=== PATIENT | female | born 1960 | race African-American/Black ===

== ENCOUNTER 2018-04-08 13:21 | Emergency (ER) | payer MEDICAID ==
[~2018-04-08] VITALS: Ht 162.6 cm; Wt 57.6 kg
[2018-04-08 13:21] VITALS: BP 95/67
[2018-04-08] MEDS ORDERED: GABAPENTIN100 MG ORAL (13:30)
[2018-04-08] MEDS ORDERED: PROTONIX40 MG ORAL (13:30)
[2018-04-08 15:02] LABS: ALANINE AMINOTRANSFERASE 76 U/L (12-78); ALBUMIN/GLOBULIN RATIO 0.5 (1.0-2.7); ALKALINE PHOSPHATASE 98 U/L (46-116); ANION GAP 9 mmol/L (5-15); ASPARTATE AMINO TRANSFERASE 78 U/L (15-37); BILIRUBIN,TOTAL 0.5 MG/DL (0.2-1.0); BLOOD UREA NITROGEN 24 mg/dL (7-18); CALCIUM 7.8 MG/DL (8.5-10.1); CARBON DIOXIDE 22 MMOL/L (21-32); CHLORIDE 115 MMOL/L (98-107); CREATININE 1.3 MG/DL (0.55-1.30); HEMATOCRIT 26.4 % (37.0-47.0); HEMOGLOBIN 8.4 G/DL (12.0-16.0); MEAN CORPUSCULAR VOLUME 88 FL (80-99); PLATELET COUNT 47 K/UL (150-450); POTASSIUM 3.8 MMOL/L (3.5-5.1); RED BLOOD COUNT 3.02 M/UL (4.20-5.40); RED CELL DISTRIBUTION WIDTH 16.2 % (11.6-14.8); SODIUM 146 MMOL/L (136-145); WHITE BLOOD COUNT 2.3 K/UL (4.8-10.8)
[2018-04-08] MEDS ORDERED: Lidocaine 2% Visc 15ml soln ORAL ONE (15:15)
--- NOTE | 2018-04-08 15:51 | Emergency Room Report ---
History of Present Illness General Chief Complaint: Nausea Source: Patient Present Illness HPI 57 Yo Female presents to the ED c/o 2 episodes of vomiting this am with specks of blood noted. pt. reports last episode was prior to arrival/ 11am. Denies dizziness, Syncope, CP, Palpitations or weakness. pt. denies blood in the stool or dark tarry stool. pt. reports she took Motrin recently. Pt. reports chronic anemia. Pt. denies fevers, chills or recent travel. Pt. also reports cough. Denies abdominal pain or tenderness. Allergies: Coded Allergies: PENICILLINS (Unverified Allergy, Unknown, 04/08/18) Patient History Past Medical History: see triage record Past Surgical History: none Pertinent Family History: none Now: No Reviewed Nursing Documentation: PMH: Agreed; PSxH: Agreed Nursing Documentation-PMH Past Medical History: No History, Except For Hx Hypertension: Yes Review of Systems All Other Systems: negative except mentioned in HPI Physical Exam Vital Signs Date Time Temp Pulse Resp B/P (MAP) Pulse Ox O2 Delivery O2 Flow Rate FiO2 04/08/18 13:07 98.2 104 18 95/67 95 Room Air 98.2 Sp02 EP Interpretation: reviewed, normal General Appearance: no apparent distress, alert, GCS 15, non-toxic, thin, Chronically Ill Head: normocephalic, atraumatic Eyes: bilateral eye normal inspection, bilateral eye PERRL ENT: hearing grossly normal, normal voice Neck: full range of motion Respiratory: chest non-tender, lungs clear, normal breath sounds, no respiratory distress, no wheezing, speaking full sentences Cardiovascular #1: regular rate, rhythm Gastrointestinal: normal bowel sounds, non tender, soft, non-distended, no guarding Rectal: deferred - Pt. defers stating that only her "mouth" is involved. Musculoskeletal: back normal, gait/station normal, normal range of motion, non- tender Neurologic: alert, oriented x3, responsive, motor strength/tone normal, sensory intact, normal gait, speech normal, grossly normal Psychiatric: judgement/insight normal Skin: normal color, no rash, warm/dry, well hydrated Medical Decision Making PA Attestation Dr. Ta is my supervising Physician whom patient management has been discussed with. Diagnostic Impression: Primary Impression: Gastritis Qualified Codes: K29.70 - Gastritis, unspecified, without bleeding Additional Impressions: Nausea & vomiting Qualified Codes: R11.2 - Nausea with vomiting, unspecified Dehydration, moderate ER Course 57 Yo Female presents to the ED c/o 2 episodes of vomiting this am with specks of blood noted. pt. reports last episode was prior to arrival/ 11am. Denies dizziness, Syncope, CP, Palpitations or weakness. pt. denies blood in the stool or dark tarry stool. pt. reports she took Motrin recently. Pt. reports chronic anemia. Pt. denies fevers, chills or recent travel. Pt. also reports cough. Denies abdominal pain or tenderness. Ddx considered but are not limited to GE, colitis, acute appy, PUD, gastritis, Upper GI Bleed, SBO Vital signs: Hr 104, systolic bp 96, pt. is afebrile, H&PE are most consistent with GE most likely viral in etiology, no evidence to suggest acute abdomen on physical exam. ORDERS: -CBC: Anemia Hb 8.4 -CMP: BUN elevated, ED INTERVENTIONS: -1000 NS iv hydration, -Zofran 4mg Pt. reports nausea has resolved. - This pt. was discussed with supervising physician due to hx of anemia, subjective vomiting with blood speckled vomitus, and initial triage VS which have resolved after IV hydration. Pt. has not had any episodes of vomiting since arrival to ED. It was determined that given HPI and ROS with pt. description of scant blood in the vomitus that pt. is stable for close follow up and given Strict ED return Precautions. DISCHARGE: At this time pt. is stable for d/c to home. Will provide printed patient care instructions, and any necessary prescriptions. Care plan and follow up instructions have been discussed with the patient prior to discharge. Labs Test 04/08/18 14:25 White Blood Count 2.3 K/UL (4.8-10.8) Red Blood Count 3.02 M/UL (4.20-5.40) Hemoglobin 8.4 G/DL (12.0-16.0) Hematocrit 26.4 % (37.0-47.0) Mean Corpuscular Volume 88 FL (80-99) Mean Corpuscular Hemoglobin 28.0 PG (27.0-31.0) Mean Corpuscular Hemoglobin Concent 31.9 G/DL (32.0-36.0) Red Cell Distribution Width 16.2 % (11.6-14.8) Platelet Count 47 K/UL (150-450) Mean Platelet Volume 7.7 FL (6.5-10.1) Neutrophils (%) (Auto) % (45.0-75.0) Lymphocytes (%) (Auto) % (20.0-45.0) Monocytes (%) (Auto) % (1.0-10.0) Eosinophils (%) (Auto) % (0.0-3.0) Basophils (%) (Auto) % (0.0-2.0) Sodium Level 146 MMOL/L (136-145) Potassium Level 3.8 MMOL/L (3.5-5.1) Chloride Level 115 MMOL/L (98-107) Carbon Dioxide Level 22 MMOL/L (21-32) Anion Gap 9 mmol/L (5-15) Blood Urea Nitrogen 24 mg/dL (7-18) Creatinine 1.3 MG/DL (0.55-1.30) Estimat Glomerular Filtration Rate 51.0 mL/min (>60) Glucose Level 90 MG/DL (74-106) Calcium Level 7.8 MG/DL (8.5-10.1) Total Bilirubin 0.5 MG/DL (0.2-1.0) Aspartate Amino Transf (AST/SGOT) 78 U/L (15-37) Alanine Aminotransferase (ALT/SGPT) 76 U/L (12-78) Alkaline Phosphatase 98 U/L (46-116) Total Protein 6.1 G/DL (6.4-8.2) Albumin 2.0 G/DL (3.4-5.0) Globulin 4.1 g/dL Albumin/Globulin Ratio 0.5 (1.0-2.7) Last Vital Signs Date Time Temp Pulse Resp B/P (MAP) Pulse Ox O2 Delivery O2 Flow Rate FiO2 04/08/18 13:21 98.2 67 18 95/67 95 Room Air 98.2 Disposition: HOME, SELF-CARE Condition: Stable Scripts Ranitidine Hcl* (ZANTAC*) 150 Mg Tablet 150 MG ORAL TWICE A DAY for 7 Days, #14 TAB Prov: Sandy Gupta 04/08/18 Ondansetron* (ZOFRAN*) 4 Mg Tablet 4 MG ORAL Q6H PRN for Nausea & Vomiting, #15 TAB Prov: Sandy Gupta 04/08/18 Referrals: [facility],REFERRING (PCP) Patient Instructions: Nausea and Vomiting, Adult, Dehydration, Adult Additional Instructions: Take medications as directed. Follow up with a Primary Care Provider in 3-5 days, even if your symptoms have resolved. --Please review list of primary care clinics, if you do not already have a primary care provider Return sooner to ED if new symptoms occur, or current symptoms become worse. - Please note that this Emergency Department Report was dictated using [email or web address] ringer technology software, occasionally this can lead to erroneous entry secondary to interpretation by the dictation equipment. Sandy Gupta Apr 08, 2018 15:51
[2018-04-08 16:02] VITALS: BP 111/80
[2018-04-08] MEDS ORDERED: ZOFRAN4 M3 ORAL (16:16)
[2018-04-08] MEDS ORDERED: ZANTAC150 MG ORAL (16:16)
[2018-04-08 16:28] VITALS: BP 111/80
== END 2018-04-08 16:28 | disposition home or self-care (01) ==
LOC: EDBD 13:21 → EMR 13:56
DX: K29.70 Gastritis, unspecified, without bleeding (principal); R11.2 Nausea with vomiting, unspecified; E86.0 Dehydration; K92.0 Hematemesis; I10 Essential (primary) hypertension; F17.200 Nicotine dependence, unspecified, uncomplicated; Z88.0 Allergy status to penicillin
CPT/HCPCS: 36415; 80053; 85007; 85025; 96360; 99284

== ENCOUNTER 2018-04-08 17:20 | Emergency (ER) | payer MEDICAID ==
[~2018-04-08] VITALS: Ht 162.6 cm; Wt 59.0 kg
[~2018-04-08 17:20] MED LIST: GABAPENTIN100 MG ORAL; PROTONIX40 MG ORAL; ZANTAC150 MG ORAL; ZOFRAN4 M3 ORAL
[2018-04-08 17:36] VITALS: BP 125/90
[2018-04-08 18:10] LABS: INR 1.4 (0.9-1.1)
[2018-04-08] MEDS ORDERED: Pantoprazole 80 MG in NS 250 ML IV ONE (18:45)
[2018-04-08 19:47] LABS: CREATINE KINASE 171 U/L (26-308)
--- NOTE | 2018-04-08 19:49 | Emergency Room Report ---
History of Present Illness General Chief Complaint: Vomiting Source: Patient Present Illness HPI 57-year-old female presents emergency department complaining of coughing up dark -colored sputum just after being discharged here in the emergency department earlier today. Patient Ayesha came in reporting 2 episodes of vomiting which had some specks of blood inside of it. Patient has not vomited since 11 AM. Patient reports she has been taking Motrin recently. Patient reports history of GI bleed in the past for which she had dark-colored stools. Patient denies dark-colored stools or black tarry stools. She denies fevers or chills, dizziness, chest pain, headache, syncope or weakness. She reports history of anemia for which she takes iron. Allergies: Coded Allergies: PENICILLINS (Unverified Allergy, Unknown, 04/08/18) Patient History Past Medical History: see triage record Past Surgical History: none Pertinent Family History: none Now: No Reviewed Nursing Documentation: PMH: Agreed; PSxH: Agreed Nursing Documentation-PMH Past Medical History: No History, Except For Hx Hypertension: Yes Review of Systems All Other Systems: negative except mentioned in HPI Physical Exam Vital Signs Date Time Temp Pulse Resp B/P (MAP) Pulse Ox O2 Delivery O2 Flow Rate FiO2 04/08/18 17:26 98.5 95 19 125/90 97 Room Air 98.4 Sp02 EP Interpretation: reviewed, normal General Appearance: no apparent distress, alert, GCS 15, non-toxic, thin Head: normocephalic, atraumatic Eyes: bilateral eye normal inspection, bilateral eye PERRL ENT: hearing grossly normal, normal voice Neck: full range of motion Respiratory: lungs clear, normal breath sounds, no respiratory distress, speaking full sentences Cardiovascular #1: regular rate, rhythm, no edema, normal capillary refill Gastrointestinal: normal bowel sounds, non tender, soft Rectal: deferred - Pt. declines stating "had blood last time but this time is just vomiting " Musculoskeletal: back normal, gait/station normal, normal range of motion, non- tender Neurologic: alert, oriented x3, responsive, motor strength/tone normal, sensory intact, normal gait, speech normal, grossly normal Psychiatric: judgement/insight normal Skin: normal color, no rash, warm/dry, well hydrated Lymphatic: no adenopathy Medical Decision Making PA Attestation Dr. Fagan is my supervising physician whom pt. management has been discussed with. Diagnostic Impression: Primary Impression: Anemia Qualified Codes: D64.9 - Anemia, unspecified Additional Impression: Upper GI bleed ER Course 57-year-old female presents emergency department complaining of coughing up dark -colored sputum just after being discharged here in the emergency department earlier today. Patient Ayesha came in reporting 2 episodes of vomiting which had some specks of blood inside of it. Patient has not vomited since 11 AM. Patient reports she has been taking Motrin recently. Patient reports history of GI bleed in the past for which she had dark-colored stools. Patient denies dark-colored stools or black tarry stools. reports had epigastric pain earlier today, not presently. She denies fevers or chills, dizziness, chest pain, headache, syncope or weakness. She reports history of anemia for which she takes iron. Pt. produced a tissue that had dark brown/red mucus on it which she reported she just coughed up after being d/c. To clarify I asked pt. if this is what her vomit looked like this am , she reported yes. Earlier she reported vomitus with specks of blood, if this is in fact how her vomitus looked then her previous description of speckled with blood was not accurate. Ddx considered but are not limited to upper GI Bleed, GE, colitis, acute appy, SBO, H.pylori, Gastritis, PNA, pericarditis just to name a few. Vital signs: pt. is afebrile, H&PE are most consistent with gastritic with possible upper GI bleed - no evidence to suggest acute abdomen on physical exam. ORDERS: - PT/PTT : 14.1, 1.4 -Troponin: WNL 0.008 -CK: 141 WNL ------- Labs from Initial visit this afternoon: -CBC: anemia with Hb 8.4, -CMP elevated BUN Please see previous note for additional labs. CXR: unremarkable -EK bpm NSR ED INTERVENTIONS: -Protonix IV Pt. has not actively vomited or coughed up blood while in the department since being re-registered. Sample that she showed to nurse after initial d/c was dark mucus on tissue paper. due to pt. hx of chronic anemia and is still having symptoms of spitting up blood will admit pt. for possible Upper GI bleed. DISPOSITION: at this time pt. will be admitted to Dr. Means for anemia, and upper GI bleed. Dr. Means agreed to admit the pt. and to continue pt. care management. Labs Test 04/08/18 14:25 04/08/18 17:30 Prothrombin Time 14.1 SEC (9.30-11.50) Prothromb Time International Ratio 1.4 (0.9-1.1) Activated Partial Thromboplast Time 28 SEC (23-33) EKG Diagnostic Results EP Interpretation: Dr. Fagan Rate: normal - 81 Bpm Rhythm: NSR ST Segments: no acute changes ASA given to the pt in ED: No PA Scribe Text This Interpretation was scribed by MIGEL Gupta. Chest X-Ray Diagnostic Results Chest X-Ray Diagnostic Results : Chest X-Ray Ordered: Yes # of Views/Limited/Complete: 1 View Indication: Other - coughed up dark mucus EP Interpretation: Yes PA Xray: Interpretation reviewed, by supervising MD, and agrees with findings. Interpretation: no consolidation, no effusion, no pneumothorax, no acute cardiopulmonary disease Impression: No acute disease Electronically Signed by: Sandy Gupta PA-C Last Vital Signs Date Time Temp Pulse Resp B/P (MAP) Pulse Ox O2 Delivery O2 Flow Rate FiO2 04/08/18 17:36 98.4 19 125/90 97 Room Air 98.4 04/08/18 17:26 95 Disposition: ADMITTED INPATIENT Condition: Stable Signed Out To: Dr. Suhas Looney. Referrals: [facility],REFERRING (PCP) Sandy Gupta Apr 08, 2018 19:49
[2018-04-08 21:20] VITALS: BP 112/73
--- NOTE | 2018-04-09 08:49 | Diagnostic Imaging Report ---
Indication: Chest pain Technique: One view of the chest Comparison: none Findings: Lungs and pleural spaces are clear. Heart size is normal. There are degenerative changes of the left shoulder Impression: No acute process
--- NOTE | 2018-04-09 14:19 | Cardiology Report ---
APPROVED REPORT EKG Measurement Heart [id number] Normal sinus rhythm Normal ECG
== END 2018-04-08 21:20 | disposition other institution (70) ==
LOC: EMR 18:02
DX: K92.2 Gastrointestinal hemorrhage, unspecified (principal); D64.9 Anemia, unspecified; F17.200 Nicotine dependence, unspecified, uncomplicated; I10 Essential (primary) hypertension; Z88.0 Allergy status to penicillin
CPT/HCPCS: 36415; 71045; 82550; 84484; 85610; 85730; 86850; 86870; 86900; 86901; 86904; 93005; 96365; 96366; 99285; C9113; J7050